=== PATIENT | male | born 1945 | race Caucasian/White ===

== ENCOUNTER 2017-09-29 17:52 | Inpatient (IN) | payer MEDICARE ==
[~2017-09-29] VITALS: Ht 170.2 cm; Wt 84.0 kg
[2017-09-29] MEDS ORDERED: SODIUM CHLORIDE 0.9% 1,000 ML IV ONE (18:01)
[2017-09-29] MEDS ORDERED: PLEASE ENTER HEIGHT AND WEIGHT MC SCH (18:30)
[2017-09-29] MEDS ORDERED: PLEASE ENTER ALLERGIES MC SCH ×2 (18:30)
[2017-09-29] MEDS ORDERED: ACETAMINOPHEN 325 MG TABLET PO ONE (18:30)
[2017-09-29] MEDS ORDERED: SODIUM CHLORIDE FLUSH 10ML SYR IVF ONE (18:30)
[2017-09-29 18:36] LABS: HEMATOCRIT 43.3 % (39.2-51.8); HEMOGLOBIN 14.7 g/dL (13.7-18.0); WHITE BLOOD COUNT 8.8 x10^3/uL (3.4-10)
[2017-09-29 18:36] LABS: RAPID INFLUENZA A POSITIVE (Negative); RAPID INFLUENZA B Negative (Negative)
[2017-09-29] MEDS ORDERED: ACETAMINOPHEN 325 MG TABLET ONE (18:38)
[2017-09-29 18:43] LABS: ASPARTATE AMINO TRANSFERASE 46 U/L (15-37); BLOOD UREA NITROGEN 18 mg/dL (7-18)
[2017-09-29] MEDS ORDERED: OMEP20TA62 PO (20:06)
[2017-09-29] MEDS ORDERED: METF500T4 PO (20:06)
[2017-09-29] MEDS ORDERED: LOSA1TAB19 PO (20:06)
[2017-09-29] MEDS ORDERED: SERT50TA PO (20:06)
[2017-09-29] MEDS ORDERED: GLIP2.5T16 PO (20:06)
[2017-09-29] MEDS ORDERED: ATOR40TA78 PO (20:06)
[2017-09-29] MEDS ORDERED: ALLO300T PO (20:06)
[2017-09-29] MEDS ORDERED: BUPR300T4 PO (20:06)
[2017-09-29] MEDS ORDERED: BUSP30TA PO (20:06)
[2017-09-29] MEDS ORDERED: SODIUM CHLORIDE FLUSH 10ML SYR IVF PRN (20:30)
[2017-09-29] MEDS ORDERED: SODIUM CHLORIDE 0.9% 1,000 ML IV SCH (21:06)
[2017-09-29] MEDS ORDERED: OXYcodone IR 5MG TABLET PO PRN (21:30)
[2017-09-29] MEDS ORDERED: POLYETHYLENE GLYCOL 17 GM PACKET PO PRN (21:30)
[2017-09-29] MEDS ORDERED: GUAIFENESIN/DM 200-20MG, 10ML UDC PO PRN (21:30)
[2017-09-29] MEDS ORDERED: ACETAMINOPHEN 325 MG TABLET PO PRN (21:30)
[2017-09-29] MEDS ORDERED: hydrALAzine 20 MG/ML, 1ML IVPush PRN (21:30)
[2017-09-29] MEDS ORDERED: BISACODYL 10 MG SUPP PR PRN (21:30)
[2017-09-29] MEDS ORDERED: BUSPIRONE 10 MG TABLET PO SCH (21:30)
[2017-09-29] MEDS ORDERED: ATORVASTATIN 40 MG TABLET PO SCH (21:30)
[2017-09-29] MEDS ORDERED: ONDANSETRON 2MG/ML, 2ML IVPush PRN (21:30)
[2017-09-29 21:47] VITALS: BP 150/66
[2017-09-30] MEDS: HEPARIN 5,000 UNITS/ML, 1ML SQ SCH ×2 (00:21→07:57)
[2017-09-30] MEDS: metFORMIN 500 MG TABLET PO SCH ×2 (00:22→07:56)
[2017-09-30] MEDS: OSELTAMIVIR 75 MG CAPSULE PO SCH ×2 (00:22→07:57)
[2017-09-30 01:09] VITALS: BP 154/82
[2017-09-30 05:46] LABS: WHITE BLOOD COUNT 9.1 x10^3/uL (3.4-10)
[2017-09-30 06:20] LABS: ASPARTATE AMINO TRANSFERASE 166 U/L (15-37); BLOOD UREA NITROGEN 17 mg/dL (7-18)
[2017-09-30 06:26] LABS: DIFF TOTAL CELLS COUNTED 100 CELL DIFF
[2017-09-30 06:55] LABS: VERIFY COUNTS? YES
[2017-09-30 07:04] VITALS: BP_SYST 149; BP_SYST 172; BP_SYST 179; BP_DIAS 68; BP_DIAS 73; BP_DIAS 86
[2017-09-30] MEDS ORDERED: LOSARTAN 50MG TABLET PO SCH (09:00)
[2017-09-30] MEDS ORDERED: SENNA/DOCUSATE TABLET PO SCH (09:00)
[2017-09-30] MEDS ORDERED: HYDROCHLOROTHIAZIDE 12.5 MG CAPSULE PO SCH (09:00)
[2017-09-30] MEDS ORDERED: BUPROPION HCL 300 MG PO SCH (09:00)
[2017-09-30] MEDS ORDERED: SERTRALINE 50MG TABLET PO SCH (09:00)
[2017-09-30] MEDS ORDERED: ALLOPURINOL 300 MG TABLET PO SCH (09:00)
[2017-09-30] MEDS ORDERED: GLIPizide ER 2.5 MG TABLET PO SCH (09:00)
[2017-09-30] MEDS ORDERED: OSEL75CA PO (12:37)
== END 2017-09-30 14:41 | disposition home or self-care (01) | DRG 194 ==
LOC: ED 20:01 → EDIP 20:02 → 4WST 21:22 → ED 23:22
PROVIDERS: ADMIT Hospitalist; ATTEND Hospitalist
DX: J10.1 Influenza due to other identified influenza virus with other respiratory manifestations (principal); E87.0 Hyperosmolality and hypernatremia; D69.6 Thrombocytopenia, unspecified; E11.65 Type 2 diabetes mellitus with hyperglycemia; E87.2 Acidosis; E87.1 Hypo-osmolality and hyponatremia; D75.89 Other specified diseases of blood and blood-forming organs; R65.10 Systemic inflammatory response syndrome (SIRS) of non-infectious origin without acute organ dysfunction; E11.9 Type 2 diabetes mellitus without complications; I10 Essential (primary) hypertension; E78.5 Hyperlipidemia, unspecified; E78.00 Pure hypercholesterolemia, unspecified; M10.9 Gout, unspecified; R09.02 Hypoxemia; Z66 Do not resuscitate; Z79.84 Long term (current) use of oral hypoglycemic drugs; Z82.49 Family history of ischemic heart disease and other diseases of the circulatory system; Z87.891 Personal history of nicotine dependence
CPT/HCPCS: 36415; 70450; 71010; 80053; 81001; 82607; 82746; 83036; 83605; 83880; 85025; 85610; 85730; 87040; 87324; 87400; 93005; 96360; 96361; J1644; J7030